=== PATIENT | male | born 1960 | race Caucasian/White ===

== ENCOUNTER → 2018-05-13 | Outpatient (CLI) | payer BC | LOC: M.CT 04-22 15:00 | DX: K40.31 Unilateral inguinal hernia, with obstruction, without gangrene, recurrent (principal); M25.78 Osteophyte, vertebrae ==

== ENCOUNTER → 2021-07-04 | Outpatient (CLI) | payer BC | LOC: M.LAB 09:41 | PROVIDERS: ATTEND Internal Medicine Gastroenterology | DX: Z01.812 Encounter for preprocedural laboratory examination (principal); Z20.822 Contact with and (suspected) exposure to COVID-19 ==